=== PATIENT | male | born 1960 | race Caucasian/White ===

== ENCOUNTER 2020-06-10 23:22 | Inpatient (IN) | payer BC, OTHER, SELFPAY ==
[2020-06-10 23:56] LABS: #Basophils 0.1 thou/uL (0.0-0.2); #Eosinphils 0.1 thou/uL (0.0-0.7); #Lymphocytes 1.1 thou/uL (1.20-3.40); #Monocytes 0.3 thou/uL (0.11-0.59); #Neutrophils 8.4 thou/uL (1.40-6.50); %Basophils 0.7 % (0.0-1.0); %Eosinophils 1.3 % (0.0-10.0); %Lymphocytes 11.1 % (21.0-51.0); %Monocytes 3.3 % (0.0-10.0); %Neutrophils 83.6 % (42.0-75.0); Hemoglobin 16.9 g/dL (14.0-18.0); Mean Corpuscular HGB CONC 32.8 g/dL (32.0-36.0); Mean Corpuscular Hemoglobin 32.7 pg (27.0-31.0); Mean Corpuscular Volume 99.6 fL (78.0-98.0); Mean Platelet Volume 6.4 fL (7.4-10.4); Platelet Count 205 thou/uL (130-400); RBC Distribution Width 12.5 % (11.5-14.5); Red Blood Cell (RBC) Count 5.18 mill/uL (4.70-6.10); White Blood Cell (WBC) Count 10.1 thou/uL (4.8-10.8)
[2020-06-11 00:17] LABS: ALT (SGPT) 83 U/L (8-55); AST (SGOT) 95 U/L (5-34); Albumin 3.8 g/dL (3.4-4.8); Alkaline Phosphatase 92 U/L (40-110); Anion Gap 14 mmol/L (10-20); BUN (Urea Nitrogen) 17 mg/dL (8.4-25.7); Bilirubin, Total 0.5 mg/dL (0.2-1.2); Calc. Creatinine Clearance 0 mL/min (70-130); Calcium 8.7 mg/dL (7.8-10.44); Carbon Dioxide 19 mmol/L (23-31); Chloride 110 mmol/L (98-107); Globulin 2.4 g/dL (2.4-3.5); Glucose 131 mg/dL (80-115); Potassium 4.3 mmol/L (3.5-5.1); Protein, Total 6.2 g/dL (5.8-8.1); Sodium 139 mmol/L (136-145)
[2020-06-11 00:45] LABS: CK (CPK) 64 U/L (30-200); Lipase 61 U/L (8-78)
[2020-06-11 01:23] LABS: SARS-CoV-2 NAA Rapid Test Not Detected (NotDetected)
[2020-06-11] MEDS ORDERED: Furosemide 40 MG/4 ML VIAL ONE ×2 (02:23→05:51)
[2020-06-11 02:25] LABS: CKMB 2.8 ng/mL (0-6.6)
[2020-06-11] MEDS ORDERED: Nitroglycerin 0.4 MG TAB (25 Tab Bottle) SL PRN (03:08)
[2020-06-11] MEDS ORDERED: Dextrose 5% in Water 1,000 ML IV PRN (03:09)
[2020-06-11] MEDS ORDERED: HumaLOG 300 UNITS/3 ML VIAL SC PRN ×2 (03:09)
[2020-06-11] MEDS ORDERED: Dextrose 50% Abboject 50 ML SYRINGE SLOW IVP PRN (03:09)
[2020-06-11] MEDS ORDERED: Aspirin 325 MG TAB PO SCH (03:30)
[2020-06-11] MEDS ORDERED: Ondansetron ODT 4 MG TAB PO PRN (03:35)
[2020-06-11] MEDS ORDERED: Ondansetron PF 4 MG/2 ML Vial IVP PRN (03:35)
[2020-06-11] MEDS ORDERED: Calcium Carbonate 500 MG ChewTAB PO PRN (03:35)
[2020-06-11] MEDS ORDERED: Senokot S 8.6-50 MG TAB PO PRN (03:35)
[2020-06-11] MEDS ORDERED: Acetaminophen 325 MG TAB PO PRN (03:35)
[2020-06-11] MEDS ORDERED: Aspirin Chewable 81 MG TAB ONE (04:17)
[2020-06-11] MEDS ORDERED: Furosemide 40 MG/4 ML VIAL SLOW IVP SCH (06:00)
[2020-06-11 06:20] LABS: Cardiac Risk 4.1 (Less than 4.5)
[2020-06-11 06:24] LABS: Troponin I 0.148 ng/mL (< 0.028)
[2020-06-11] MEDS ORDERED: Carvedilol 3.125 MG TAB PO SCH (08:00)
[2020-06-11] MEDS ORDERED: Famotidine 20 MG TAB PO SCH (09:00)
[2020-06-11] MEDS ORDERED: Enoxaparin Sodium 40 MG/0.4 ML SYRINGE SC SCH (09:00)
[2020-06-11] MEDS ORDERED: Lisinopril 10 MG TAB PO SCH ×2 (09:00)
[2020-06-11] MEDS ORDERED: Aspirin Chewable 81 MG TAB PO SCH (09:00)
[2020-06-11 09:04] LABS: Troponin I 0.119 ng/mL (< 0.028)
[2020-06-11] MEDS ORDERED: Famotidine 20 MG TAB ONE (09:56)
[2020-06-11] MEDS ORDERED: Enoxaparin Sodium 40 MG/0.4 ML SYRINGE ONE (09:56)
[2020-06-11] MEDS ORDERED: Iopamidol-370 76% 500 ML 1 ML ONE (12:50)
[2020-06-11] MEDS ORDERED: Atorvastatin Calcium 40 MG TAB PO SCH (21:00)
[2020-06-12] MEDS ORDERED: Aspirin 81 mg Enteric Coated Tablet PO SCH (09:00)
== END 2020-06-11 15:03 | disposition left against medical advice (07) | DRG 292 ==
LOC: ERS 23:22 → ERHOLD 06-11 02:27
PROVIDERS: ADMIT Student in an Organized Health Care Education/Training Program; ATTEND Internal Medicine
DX: I11.0 Hypertensive heart disease with heart failure (principal); C18.9 Malignant neoplasm of colon, unspecified; I24.8 Other forms of acute ischemic heart disease; J98.11 Atelectasis; I50.9 Heart failure, unspecified; E11.9 Type 2 diabetes mellitus without complications; R77.8 Other specified abnormalities of plasma proteins; F12.10 Cannabis abuse, uncomplicated; E78.5 Hyperlipidemia, unspecified; I25.119 Atherosclerotic heart disease of native coronary artery with unspecified angina pectoris; Z88.1 Allergy status to other antibiotic agents; Z95.5 Presence of coronary angioplasty implant and graft; Z85.038 Personal history of other malignant neoplasm of large intestine; Z98.890 Other specified postprocedural states; Z90.49 Acquired absence of other specified parts of digestive tract; Z72.0 Tobacco use; Z53.29 Procedure and treatment not carried out because of patient's decision for other reasons; Z20.822 Contact with and (suspected) exposure to COVID-19
CPT/HCPCS: 0240U; 36415; 36416; 71045; 71275; 80053; 80061; 82550; 82553; 83690; 83735; 83880; 84443; 84484; 85025; 85379; 87635; 93005; 96374; J1650; J1940; Q9967; U0003; U0005

== ENCOUNTER 2022-03-08 05:30 | Inpatient (IN) | payer BC ==
[2022-03-08] MEDS ORDERED: Morphine 4 MG/ML VIAL ONE (05:50)
[2022-03-08] MEDS ORDERED: Furosemide 40 MG/4 ML VIAL ONE ×2 (05:51→14:57)
[2022-03-08 06:14] LABS: #Basophils 0.1 thou/uL (0.0-0.2); #Eosinphils 0.4 thou/uL (0.0-0.7); #Lymphocytes 1.1 thou/uL (1.20-3.40); #Monocytes 0.7 thou/uL (0.11-0.59); #Neutrophils 8.4 thou/uL (1.40-6.50); %Basophils 0.6 % (0.0-1.0); %Lymphocytes 10.6 % (21.0-51.0); %Monocytes 6.8 % (0.0-10.0); Hemoglobin 14.2 g/dL (14.0-18.0); Mean Corpuscular HGB CONC 32.4 g/dL (32.0-36.0); Mean Corpuscular Hemoglobin 32.5 pg (27.0-31.0); Mean Platelet Volume 6.2 fL (7.4-10.4); Platelet Count 277 10x3/uL (130-400); RBC Distribution Width 11.6 % (11.5-14.5); Red Blood Cell (RBC) Count 4.38 mill/uL (4.70-6.10); White Blood Cell (WBC) Count 10.8 10x3/uL (4.8-10.8)
[2022-03-08 06:34] LABS: ALT (SGPT) 14 U/L (8-55); AST (SGOT) 16 U/L (5-34); Albumin 3.6 g/dL (3.4-4.8); Alkaline Phosphatase 63 U/L (40-110); Anion Gap 12 mmol/L (10-20); BUN (Urea Nitrogen) 12 mg/dL (8.4-25.7); Bilirubin, Total 0.5 mg/dL (0.2-1.2); Calc. Creatinine Clearance 0 mL/min (70-130); Calcium 8.3 mg/dL (7.8-10.44); Carbon Dioxide 23 mmol/L (23-31); Chloride 109 mmol/L (98-107); Estimated GFR 98; Globulin 2.1 g/dL (2.4-3.5); Glucose 92 mg/dL (80-115); Lipase 25 U/L (8-78); Potassium 4.1 mmol/L (3.5-5.1); Protein, Total 5.7 g/dL (5.8-8.1); Sodium 140 mmol/L (136-145)
[2022-03-08 06:50] LABS: SARS-CoV-2 NAA Rapid Test Not Detected (NotDetected)
[2022-03-08 06:57] LABS: CKMB 3.6 ng/mL (0-6.6)
[2022-03-08] MEDS ORDERED: Ipratropium/Albuterol 3 ML NEB ONE ×2 (08:51→14:31)
[2022-03-08 11:03] LABS: Bilirubin Negative (Negative); Blood, Urine Negative (Negative); Clarity Clear (Clear); Glucose, Urine (Dipstick) Normal (Negative); Ketone, Urine Negative (Negative); Leukocyte Negative Leu/uL (Negative); Nitrite Negative (Negative); Protein, Urine (Dipstick) Negative (Neg-Trace); Specific Gravity, Urine 1.007 (1.002-1.036); Urobilinogen Normal mg/dL (Less than 2)
[2022-03-08] MEDS ORDERED: Ondansetron ODT 4 MG TAB PO PRN (11:17)
[2022-03-08] MEDS ORDERED: Dextrose 50% Abboject 50 ML SYRINGE SLOW IVP PRN (11:17)
[2022-03-08] MEDS ORDERED: Acetaminophen 500 MG TAB PO PRN (11:17)
[2022-03-08] MEDS ORDERED: HumaLOG 300 UNITS/3 ML VIAL SC PRN ×2 (11:17)
[2022-03-08] MEDS ORDERED: Dextrose 5% in Water 1,000 ML IV PRN (11:17)
[2022-03-08] MEDS ORDERED: Benzonatate 100 MG CAP PO PRN (11:17)
[2022-03-08] MEDS ORDERED: Ondansetron PF 4 MG/2 ML Vial IVP PRN (11:17)
[2022-03-08] MEDS ORDERED: Mometasone 200 MCG/Formoterol 5 MCG 120 PUFF INHALER INH SCH (11:45)
[2022-03-08 12:00] LABS: Cardiac Risk 3.9 (Less than 4.5)
[2022-03-08] MEDS: Ipratropium/Albuterol 3 ML NEB NEB SCH ×2 (14:35→19:51)
[2022-03-08] MEDS: Furosemide 40 MG/4 ML VIAL SLOW IVP SCH ×2 (15:14→21:59)
[2022-03-08 18:27] VITALS: BMI 33.7
[2022-03-08] MEDS: Mometasone 200 MCG/Formoterol 5 MCG 120 PUFF INHALER INH SCH (19:55)
[2022-03-08] MEDS ORDERED: Atorvastatin Calcium 40 MG TAB PO SCH (21:00)
[2022-03-08] MEDS: Famotidine 20 MG TAB PO SCH (21:58)
[2022-03-09 04:30] LABS: #Basophils 0.1 thou/uL (0.0-0.2); #Eosinphils 0.5 thou/uL (0.0-0.7); #Lymphocytes 1.1 thou/uL (1.20-3.40); #Monocytes 0.7 thou/uL (0.11-0.59); #Neutrophils 8.1 thou/uL (1.40-6.50); %Basophils 0.6 % (0.0-1.0); %Eosinophils 5.1 % (0.0-10.0); %Lymphocytes 10.6 % (21.0-51.0); %Monocytes 6.5 % (0.0-10.0); %Neutrophils 77.2 % (42.0-75.0); Hemoglobin 15.2 g/dL (14.0-18.0); Mean Corpuscular Hemoglobin 32.6 pg (27.0-31.0); Mean Corpuscular Volume 98.8 fl (78.0-98.0); Mean Platelet Volume 6.2 fL (7.4-10.4); Platelet Count 291 10x3/uL (130-400); RBC Distribution Width 11.6 % (11.5-14.5); Red Blood Cell (RBC) Count 4.68 mill/uL (4.70-6.10); White Blood Cell (WBC) Count 10.4 10x3/uL (4.8-10.8)
[2022-03-09 05:12] LABS: ALT (SGPT) 13 U/L (8-55); AST (SGOT) 15 U/L (5-34); Albumin 3.9 g/dL (3.4-4.8); Alkaline Phosphatase 70 U/L (40-110); Anion Gap 14 mmol/L (10-20); BUN (Urea Nitrogen) 14 mg/dL (8.4-25.7); Bilirubin, Total 0.9 mg/dL (0.2-1.2); Calc. Creatinine Clearance 115 mL/min (70-130); Calcium 9.1 mg/dL (7.8-10.44); Carbon Dioxide 24 mmol/L (23-31); Chloride 103 mmol/L (98-107); Estimated GFR 97; Globulin 2.8 g/dL (2.4-3.5); Glucose 112 mg/dL (80-115); Potassium 3.4 mmol/L (3.5-5.1); Protein, Total 6.7 g/dL (5.8-8.1); Sodium 138 mmol/L (136-145)
[2022-03-09] MEDS: Furosemide 40 MG/4 ML VIAL SLOW IVP SCH ×2 (06:41→14:20)
[2022-03-09] MEDS: Mometasone 200 MCG/Formoterol 5 MCG 120 PUFF INHALER INH SCH (07:26)
[2022-03-09] MEDS: Ipratropium/Albuterol 3 ML NEB NEB SCH ×3 (07:27→14:21)
[2022-03-09] MEDS ORDERED: Potassium Chloride 20 MEQ TAB PO SCH (07:45)
[2022-03-09] MEDS ORDERED: Aspirin 81 mg Enteric Coated Tablet PO SCH (09:00)
[2022-03-09] MEDS ORDERED: Lisinopril 2.5 MG TAB PO SCH (09:00)
[2022-03-09 09:28] LABS: Troponin I 0.049 ng/mL (< 0.028)
[2022-03-09] MEDS: Famotidine 20 MG TAB PO SCH (09:57)
[2022-03-09 11:57] VITALS: BP 88/58; TEMP 98.6
== END 2022-03-09 15:15 | disposition left against medical advice (07) | DRG 291 ==
LOC: ERS 05:30 → ERHOLD 07:35 → 2NO 18:02
PROVIDERS: ADMIT Family Medicine; ATTEND Internal Medicine
DX: I11.0 Hypertensive heart disease with heart failure (principal); I50.23 Acute on chronic systolic (congestive) heart failure; Z20.822 Contact with and (suspected) exposure to COVID-19; E11.9 Type 2 diabetes mellitus without complications; F17.210 Nicotine dependence, cigarettes, uncomplicated; F12.10 Cannabis abuse, uncomplicated; I25.10 Atherosclerotic heart disease of native coronary artery without angina pectoris; E78.5 Hyperlipidemia, unspecified; J44.9 Chronic obstructive pulmonary disease, unspecified; Z91.190 Patient's noncompliance with other medical treatment and regimen due to financial hardship; Z95.5 Presence of coronary angioplasty implant and graft; Z85.038 Personal history of other malignant neoplasm of large intestine; Z88.1 Allergy status to other antibiotic agents
CPT/HCPCS: 36415; 36416; 71045; 80053; 80061; 81003; 82553; 83605; 83690; 83735; 83880; 84443; 84484; 85025; 93005; 93306; 94640; 94664; 96374; 96375; 97139; J1940; J2270; J7620

== ENCOUNTER 2022-03-19 01:43 | Inpatient (IN) | payer BC ==
[2022-03-19] MEDS ORDERED: cefTRIAXone\\ROCEPHIN 1 GM VIAL ONE (02:20)
[2022-03-19 06:18] VITALS: BMI 31.7
[2022-03-19 06:31] LABS: SARS-CoV-2 NAA Rapid Test Not Detected (NotDetected)
[2022-03-19 07:46] LABS: Troponin I 0.084 ng/mL (< 0.028)
[2022-03-19] MEDS ORDERED: Ondansetron PF 4 MG/2 ML Vial IVP PRN (08:30)
[2022-03-19] MEDS ORDERED: Ondansetron ODT 4 MG TAB PO PRN (08:30)
[2022-03-19] MEDS ORDERED: [UNRECOGNIZED DRUG - OTHER] PO SCH (09:00)
[2022-03-19] MEDS ORDERED: POTASSIUM CHLORIDE 20 MEQ/15 ML PO SCH (09:00)
[2022-03-19] MEDS ORDERED: Lisinopril 2.5 MG TAB PO SCH (09:00)
[2022-03-19] MEDS ORDERED: Iopamidol-370 76% 500 ML 1 ML ONE (09:44)
[2022-03-19 09:58] LABS: Troponin I 0.084 ng/mL (< 0.028)
[2022-03-19] MEDS ORDERED: Azithromycin 500 MG in Sodium Chloride 0.9% 250 ML 250 ML IVPB SCH (10:00)
[2022-03-19] MEDS ORDERED: Furosemide 40 MG TAB ONE (11:14)
[2022-03-19] MEDS ORDERED: Aspirin Chewable 81 MG TAB ONE (11:14)
[2022-03-19] MEDS ORDERED: Nicotine 14 MG PATCH ONE (11:14)
[2022-03-19] MEDS: Aspirin 81 mg Enteric Coated Tablet PO SCH (11:31)
[2022-03-19] MEDS: Furosemide 40 MG TAB PO SCH (11:31)
[2022-03-19] MEDS: Nicotine 14 MG PATCH TD SCH (11:32)
[2022-03-19] MEDS ORDERED: Ondansetron PF 4 MG/2 ML Vial ONE (14:28)
[2022-03-19] MEDS: Ipratropium/Albuterol 3 ML NEB NEB PRN (17:38)
[2022-03-19] MEDS ORDERED: Digoxin 0.5 MG/2 ML AMP SLOW IVP SCH ×3 (18:00→21:00)
[2022-03-19] MEDS: Atorvastatin Calcium 40 MG TAB PO SCH (20:02)
[2022-03-20 02:39] LABS: #Eosinphils 0.1 thou/uL (0.0-0.7); #Lymphocytes 1.6 thou/uL (1.20-3.40); #Monocytes 1.1 thou/uL (0.11-0.59); #Neutrophils 11.5 thou/uL (1.40-6.50); %Basophils 0.2 % (0.0-1.0); %Eosinophils 0.8 % (0.0-10.0); %Monocytes 7.7 % (0.0-10.0); %Neutrophils 80.4 % (42.0-75.0); Hemoglobin 13.6 g/dL (14.0-18.0); Mean Corpuscular HGB CONC 32.3 g/dL (32.0-36.0); Mean Corpuscular Hemoglobin 32.1 pg (27.0-31.0); Mean Corpuscular Volume 99.3 fl (78.0-98.0); Mean Platelet Volume 6.6 fL (7.4-10.4); Platelet Count 356 10x3/uL (130-400); RBC Distribution Width 11.9 % (11.5-14.5); Red Blood Cell (RBC) Count 4.22 mill/uL (4.70-6.10); White Blood Cell (WBC) Count 14.4 10x3/uL (4.8-10.8)
[2022-03-20] MEDS: cefTRIAXone\\ROCEPHIN 1 GM in Sodium Chloride 0.9% 100 ML IVPB SCH (02:49)
[2022-03-20 03:00] LABS: ALT (SGPT) 20 U/L (8-55); AST (SGOT) 16 U/L (5-34); Albumin 3.6 g/dL (3.4-4.8); Alkaline Phosphatase 63 U/L (40-110); Anion Gap 15 mmol/L (10-20); BUN (Urea Nitrogen) 17 mg/dL (8.4-25.7); Bilirubin, Total 0.6 mg/dL (0.2-1.2); Calc. Creatinine Clearance 117 mL/min (70-130); Calcium 8.9 mg/dL (7.8-10.44); Carbon Dioxide 23 mmol/L (23-31); Chloride 101 mmol/L (98-107); Estimated GFR 97; Globulin 2.6 g/dL (2.4-3.5); Glucose 103 mg/dL (80-115); Potassium 3.9 mmol/L (3.5-5.1); Protein, Total 6.2 g/dL (5.8-8.1); Sodium 135 mmol/L (136-145)
[2022-03-20] MEDS: Acetaminophen 325 MG TAB PO PRN (04:45)
[2022-03-20] MEDS: Aspirin 81 mg Enteric Coated Tablet PO SCH (08:40)
[2022-03-20] MEDS: Nicotine 14 MG PATCH TD SCH (08:40)
[2022-03-20] MEDS: Digoxin 0.25 MG TAB PO SCH (08:40)
[2022-03-20] MEDS: Potassium Chloride 20 MEQ TAB PO SCH (08:40)
[2022-03-20] MEDS: Furosemide 40 MG TAB PO SCH (08:40)
[2022-03-20] MEDS ORDERED: Metoprolol Tartrate 25 MG TAB PO SCH (09:00)
[2022-03-20] MEDS: Diazepam 2 MG TAB PO PRN (12:36)
[2022-03-20 16:23] LABS: Hemoglobin 14.1 g/dL (14.0-18.0)
[2022-03-20 17:36] LABS: RBC Count-Automated (BF) Greater than 890000 /cu.mm; WBC/Nucleated-Auto (BF) 4353 /cu.mm
[2022-03-20 17:43] LABS: Pleural Fluid, Amylase 44 U/L (Not Available); Pleural Fluid, Glucose Less than 20 mg/dL; Pleural Fluid, LDH 2270 U/L (Not Available)
[2022-03-20 18:07] LABS: BF Color Red; Body Fluid Source Pleural Fluid; Clarity Cloudy/Turbid (Clear); Tube # EDTA
[2022-03-20 18:33] LABS: BF Segmented Neutrophils 20 %; Cell Count Non Hematic 17 %; Eosinophils 13 %; Lymphocytes 50 %
[2022-03-20] MEDS ORDERED: Preparation H Ointment 28 GM TUBE TOP PRN (19:53)
[2022-03-20] MEDS: Atorvastatin Calcium 40 MG TAB PO SCH (20:16)
[2022-03-21] MEDS: cefTRIAXone\\ROCEPHIN 1 GM in Sodium Chloride 0.9% 100 ML IVPB SCH (03:11)
[2022-03-21 05:11] LABS: #Eosinphils 0.1 thou/uL (0.0-0.7); #Lymphocytes 1.1 thou/uL (1.20-3.40); #Monocytes 1.1 thou/uL (0.11-0.59); #Neutrophils 12.7 thou/uL (1.40-6.50); %Basophils 0.2 % (0.0-1.0); %Eosinophils 0.9 % (0.0-10.0); %Lymphocytes 7.1 % (21.0-51.0); %Monocytes 7.3 % (0.0-10.0); %Neutrophils 84.6 % (42.0-75.0); Hemoglobin 13.6 g/dL (14.0-18.0); Platelet Count 364 10x3/uL (130-400); RBC Distribution Width 11.8 % (11.5-14.5); Red Blood Cell (RBC) Count 4.13 mill/uL (4.70-6.10)
[2022-03-21 05:28] LABS: ALT (SGPT) 26 U/L (8-55); AST (SGOT) 18 U/L (5-34); Albumin 3.1 g/dL (3.4-4.8); Alkaline Phosphatase 70 U/L (40-110); Anion Gap 14 mmol/L (10-20); BUN (Urea Nitrogen) 16 mg/dL (8.4-25.7); Bilirubin, Total 0.4 mg/dL (0.2-1.2); Calc. Creatinine Clearance 111 mL/min (70-130); Calcium 8.5 mg/dL (7.8-10.44); Carbon Dioxide 27 mmol/L (23-31); Chloride 102 mmol/L (98-107); Estimated GFR 97; Globulin 2.5 g/dL (2.4-3.5); Glucose 150 mg/dL (80-115); Protein, Total 5.6 g/dL (5.8-8.1); Sodium 139 mmol/L (136-145)
[2022-03-21] MEDS: Nicotine 14 MG PATCH TD SCH (08:11)
[2022-03-21] MEDS: Furosemide 40 MG TAB PO SCH (08:16)
[2022-03-21] MEDS: Digoxin 0.25 MG TAB PO SCH (08:16)
[2022-03-21] MEDS: Potassium Chloride 20 MEQ TAB PO SCH (08:16)
[2022-03-21] MEDS: Aspirin 81 mg Enteric Coated Tablet PO SCH (08:16)
[2022-03-21] MEDS ORDERED: Spironolactone 25 MG TAB PO SCH (10:00)
[2022-03-21] MEDS: Atorvastatin Calcium 40 MG TAB PO SCH (21:10)
[2022-03-21] MEDS: Ipratropium/Albuterol 3 ML NEB NEB PRN (22:43)
[2022-03-21] MEDS: Diazepam 2 MG TAB PO PRN (23:07)
[2022-03-22] MEDS: cefTRIAXone\\ROCEPHIN 1 GM in Sodium Chloride 0.9% 100 ML IVPB SCH (03:01)
[2022-03-22 04:57] LABS: #Eosinphils 0.3 thou/uL (0.0-0.7); #Lymphocytes 1.5 thou/uL (1.20-3.40); #Neutrophils 11.5 thou/uL (1.40-6.50); %Basophils 0.2 % (0.0-1.0); %Eosinophils 1.8 % (0.0-10.0); %Lymphocytes 10.3 % (21.0-51.0); %Monocytes 6.7 % (0.0-10.0); Hemoglobin 13.4 g/dL (14.0-18.0); Mean Corpuscular HGB CONC 32.8 g/dL (32.0-36.0); Mean Corpuscular Hemoglobin 32.2 pg (27.0-31.0); Mean Corpuscular Volume 98.3 fl (78.0-98.0); Mean Platelet Volume 6.2 fL (7.4-10.4); Platelet Count 335 10x3/uL (130-400); Red Blood Cell (RBC) Count 4.15 mill/uL (4.70-6.10); White Blood Cell (WBC) Count 14.2 10x3/uL (4.8-10.8)
[2022-03-22 05:27] LABS: ALT (SGPT) 25 U/L (8-55); AST (SGOT) 20 U/L (5-34); Alkaline Phosphatase 59 U/L (40-110); Anion Gap 13 mmol/L (10-20); BUN (Urea Nitrogen) 15 mg/dL (8.4-25.7); Bilirubin, Total 0.4 mg/dL (0.2-1.2); Calc. Creatinine Clearance 126 mL/min (70-130); Calcium 8.3 mg/dL (7.8-10.44); Carbon Dioxide 25 mmol/L (23-31); Chloride 104 mmol/L (98-107); Estimated GFR 100; Globulin 2.4 g/dL (2.4-3.5); Glucose 105 mg/dL (80-115); Potassium 4.2 mmol/L (3.5-5.1); Protein, Total 5.4 g/dL (5.8-8.1); Sodium 138 mmol/L (136-145)
[2022-03-22] MEDS: Aspirin 81 mg Enteric Coated Tablet PO SCH (08:31)
[2022-03-22] MEDS: Furosemide 40 MG TAB PO SCH (08:31)
[2022-03-22] MEDS: Nicotine 14 MG PATCH TD SCH (08:32)
[2022-03-22] MEDS: Spironolactone 25 MG TAB PO SCH (08:32)
[2022-03-22] MEDS: Potassium Chloride 20 MEQ TAB PO SCH (08:32)
[2022-03-22] MEDS: Digoxin 0.25 MG TAB PO SCH (08:32)
[2022-03-22] MEDS: Ipratropium/Albuterol 3 ML NEB NEB PRN (12:00)
[2022-03-22 13:42] LABS: ANA Symphony (Qualitative) Negative (Negative); ANA Symphony (Quantitative) 0.3 Ratio (< 0.7 Negative); dsDNA IgG Antibody 0.9 IU/mL (<10 Negative)
[2022-03-22] MEDS ORDERED: Albuterol 200 PUFF (6.7GM INHALER) INH PRN (13:43)
[2022-03-22] MEDS ORDERED: fentaNYL PF 100 MCG/2 ML SYRINGE ONE ×2 (15:07→16:56)
[2022-03-22] MEDS ORDERED: Albumin 5% 250 ML ONE (15:08)
[2022-03-22] MEDS ORDERED: Bupivacaine HCl 0.5%/Epinephrine 1:200,000/PF 30 ml Vial ONE (16:08)
[2022-03-22] MEDS ORDERED: Dexamethasone 4 mg/ml Vial ONE (16:08)
[2022-03-22] MEDS ORDERED: HYDROmorphone 0.5 MG/0.5 ML SYRINGE ONE (16:57)
[2022-03-22] MEDS ORDERED: Lidocaine 1% PF 5 ML VIAL ONE (17:26)
[2022-03-22] MEDS ORDERED: Dexamethasone 20 MG/5 ML VIAL ONE (17:26)
[2022-03-22] MEDS ORDERED: PHENYLEPHRINE-NS 100 MCG/ML 10 ML SYRINGE ONE (17:26)
[2022-03-22] MEDS ORDERED: Rocuronium Bromide 10 MG/ML (10ML VIAL) ONE (17:26)
[2022-03-22] MEDS ORDERED: Ondansetron PF 4 MG/2 ML Vial ONE (17:26)
[2022-03-22] MEDS ORDERED: SUGAMMADEX SODIUM 200 MG/2 ML VIAL ONE (17:52)
[2022-03-22] MEDS ORDERED: Fentanyl 100 MCG/2 ML VIAL SLOW IVP PRN ×2 (18:29)
[2022-03-22] MEDS ORDERED: Ondansetron PF 4 MG/2 ML Vial IVP PRN (18:29)
[2022-03-22] MEDS ORDERED: Ipratropium/Albuterol 3 ML NEB NEB PRN (18:29)
[2022-03-22] MEDS ORDERED: Fentanyl 100 MCG/2 ML VIAL ONE (18:50)
[2022-03-22] MEDS: Atorvastatin Calcium 40 MG TAB PO SCH (20:34)
[2022-03-22] MEDS: Sacubitril 49 MG/Valsartan 51 MG TABLET PO SCH (22:54)
[2022-03-22] MEDS: traMADol HCl 50 MG TAB PO PRN (22:56)
[2022-03-23] MEDS: cefTRIAXone\\ROCEPHIN 1 GM in Sodium Chloride 0.9% 100 ML IVPB SCH (03:14)
[2022-03-23] MEDS: traMADol HCl 50 MG TAB PO PRN ×3 (05:01→23:06)
[2022-03-23 05:37] LABS: Band 4 % (5-11); Hemoglobin 13.4 g/dL (14.0-18.0); Lymphocytes 2 % (21-51); MDiff Complete? YES; Mean Corpuscular HGB CONC 34.1 g/dL (32.0-36.0); Mean Corpuscular Hemoglobin 33.7 pg (27.0-31.0); Mean Corpuscular Volume 98.8 fl (78.0-98.0); Monocytes 1 % (0-10); Neutrophil 93 % (42-75); Platelet Count 350 10x3/uL (130-400); Platelet Morphology Comment Appears Adequate; Polychromasia SLIGHT = 2-3 cells (100X) (0-2/hpf); Red Blood Cell (RBC) Count 3.97 mill/uL (4.70-6.10); White Blood Cell (WBC) Count 18.1 10x3/uL (4.8-10.8)
[2022-03-23 05:45] LABS: ALT (SGPT) 26 U/L (8-55); AST (SGOT) 28 U/L (5-34); Albumin 2.7 g/dL (3.4-4.8); Alkaline Phosphatase 59 U/L (40-110); Anion Gap 15 mmol/L (10-20); BUN (Urea Nitrogen) 20 mg/dL (8.4-25.7); Bilirubin, Total 0.5 mg/dL (0.2-1.2); Calc. Creatinine Clearance 99 mL/min (70-130); Calcium 8.3 mg/dL (7.8-10.44); Carbon Dioxide 20 mmol/L (23-31); Chloride 103 mmol/L (98-107); Estimated GFR 85; Globulin 2.7 g/dL (2.4-3.5); Glucose 250 mg/dL (80-115); Potassium 5.2 mmol/L (3.5-5.1); Protein, Total 5.4 g/dL (5.8-8.1); Sodium 133 mmol/L (136-145)
[2022-03-23] MEDS: Sacubitril 49 MG/Valsartan 51 MG TABLET PO SCH ×2 (08:32→19:55)
[2022-03-23] MEDS: Digoxin 0.25 MG TAB PO SCH (08:32)
[2022-03-23] MEDS: Aspirin 81 mg Enteric Coated Tablet PO SCH (08:33)
[2022-03-23] MEDS: Furosemide 40 MG TAB PO SCH (08:33)
[2022-03-23] MEDS: Nicotine 14 MG PATCH TD SCH (08:34)
[2022-03-23] MEDS: Potassium Chloride 20 MEQ TAB PO SCH (11:31)
[2022-03-23] MEDS: Spironolactone 25 MG TAB PO SCH (12:16)
[2022-03-23] MEDS: Atorvastatin Calcium 40 MG TAB PO SCH (19:55)
[2022-03-24] MEDS: cefTRIAXone\\ROCEPHIN 1 GM in Sodium Chloride 0.9% 100 ML IVPB SCH (02:35)
[2022-03-24 05:19] LABS: #Eosinphils 0.2 thou/uL (0.0-0.7); #Lymphocytes 1.5 thou/uL (1.20-3.40); #Monocytes 0.9 thou/uL (0.11-0.59); #Neutrophils 15.5 thou/uL (1.40-6.50); %Basophils 0.1 % (0.0-1.0); %Eosinophils 1.3 % (0.0-10.0); %Monocytes 4.8 % (0.0-10.0); %Neutrophils 85.9 % (42.0-75.0); Hemoglobin 12.3 g/dL (14.0-18.0); Mean Corpuscular HGB CONC 32.6 g/dL (32.0-36.0); Mean Corpuscular Volume 98.1 fl (78.0-98.0); Platelet Count 321 10x3/uL (130-400); RBC Distribution Width 12.1 % (11.5-14.5); Red Blood Cell (RBC) Count 3.86 mill/uL (4.70-6.10)
[2022-03-24 05:46] LABS: ALT (SGPT) 32 U/L (8-55); AST (SGOT) 30 U/L (5-34); Albumin 2.7 g/dL (3.4-4.8); Alkaline Phosphatase 57 U/L (40-110); Anion Gap 13 mmol/L (10-20); BUN (Urea Nitrogen) 17 mg/dL (8.4-25.7); Bilirubin, Total 0.4 mg/dL (0.2-1.2); Calc. Creatinine Clearance 120 mL/min (70-130); Calcium 8.4 mg/dL (7.8-10.44); Carbon Dioxide 23 mmol/L (23-31); Chloride 104 mmol/L (98-107); Estimated GFR 99; Globulin 2.6 g/dL (2.4-3.5); Glucose 103 mg/dL (80-115); Potassium 4.8 mmol/L (3.5-5.1); Protein, Total 5.3 g/dL (5.8-8.1); Sodium 135 mmol/L (136-145)
[2022-03-24] MEDS: traMADol HCl 50 MG TAB PO PRN ×2 (06:04→20:36)
[2022-03-24] MEDS: Aspirin 81 mg Enteric Coated Tablet PO SCH (09:04)
[2022-03-24] MEDS: Digoxin 0.25 MG TAB PO SCH (09:05)
[2022-03-24] MEDS: Sacubitril 49 MG/Valsartan 51 MG TABLET PO SCH ×2 (09:05→20:35)
[2022-03-24] MEDS: Spironolactone 25 MG TAB PO SCH (09:05)
[2022-03-24] MEDS: Furosemide 40 MG TAB PO SCH (09:05)
[2022-03-24] MEDS: Nicotine 14 MG PATCH TD SCH (09:06)
[2022-03-24] MEDS ORDERED: Iopamidol-370 76% 500 ML 1 ML ONE (09:54)
[2022-03-24 13:17] LABS: Fungus Stain Final report (.)
[2022-03-24] MEDS: Atorvastatin Calcium 40 MG TAB PO SCH (20:36)
[2022-03-25] MEDS: cefTRIAXone\\ROCEPHIN 1 GM in Sodium Chloride 0.9% 100 ML IVPB SCH (02:26)
[2022-03-25] MEDS: traMADol HCl 50 MG TAB PO PRN (08:27)
[2022-03-25] MEDS: Spironolactone 25 MG TAB PO SCH (08:27)
[2022-03-25] MEDS: Aspirin 81 mg Enteric Coated Tablet PO SCH (09:35)
[2022-03-25] MEDS: Furosemide 40 MG TAB PO SCH (09:36)
[2022-03-25] MEDS: Digoxin 0.25 MG TAB PO SCH (09:36)
[2022-03-25] MEDS: Nicotine 14 MG PATCH TD SCH (09:36)
[2022-03-25] MEDS: Sacubitril 49 MG/Valsartan 51 MG TABLET PO SCH (09:36)
[2022-03-25 11:56] VITALS: BP 97/54; TEMP 97.7
[2022-03-25] MEDS: Acetaminophen 325 MG TAB PO PRN (13:28)
== END 2022-03-25 16:50 | disposition home or self-care (01) | DRG 166 ==
LOC: ERS 01:43 → ERHOLD 05:49 → 2SW 16:14
PROVIDERS: ADMIT Student in an Organized Health Care Education/Training Program; ATTEND Hospitalist
PROC: 0W9B3ZZ Drainage of Left Pleural Cavity, Percutaneous Approach (ICD-10-PCS; principal; 2022-03-20)
PROC: 0BBP4ZX Excision of Left Pleura, Percutaneous Endoscopic Approach, Diagnostic (ICD-10-PCS; 2022-03-22)
PROC: 0W9B40Z Drainage of Left Pleural Cavity with Drainage Device, Percutaneous Endoscopic Approach (ICD-10-PCS; 2022-03-22)
PROC: 3E033XZ Introduction of Vasopressor into Peripheral Vein, Percutaneous Approach (ICD-10-PCS; 2022-03-22)
PROC: 0WCB4ZZ Extirpation of Matter from Left Pleural Cavity, Percutaneous Endoscopic Approach (ICD-10-PCS; 2022-03-22)
DX: C38.4 Malignant neoplasm of pleura (principal); I21.A1 Myocardial infarction type 2; J96.01 Acute respiratory failure with hypoxia; I50.22 Chronic systolic (congestive) heart failure; I47.20 Ventricular tachycardia, unspecified; J94.2 Hemothorax; C18.7 Malignant neoplasm of sigmoid colon; J91.0 Malignant pleural effusion; E11.9 Type 2 diabetes mellitus without complications; I25.5 Ischemic cardiomyopathy; F17.210 Nicotine dependence, cigarettes, uncomplicated; J44.9 Chronic obstructive pulmonary disease, unspecified; I25.10 Atherosclerotic heart disease of native coronary artery without angina pectoris; I11.0 Hypertensive heart disease with heart failure; E78.5 Hyperlipidemia, unspecified; Z95.5 Presence of coronary angioplasty implant and graft; Z88.1 Allergy status to other antibiotic agents; Z79.82 Long term (current) use of aspirin; Z79.899 Other long term (current) drug therapy; Z98.890 Other specified postprocedural states; Z82.49 Family history of ischemic heart disease and other diseases of the circulatory system; Z90.49 Acquired absence of other specified parts of digestive tract; Z20.822 Contact with and (suspected) exposure to COVID-19; Z71.6 Tobacco abuse counseling; I25.119 Atherosclerotic heart disease of native coronary artery with unspecified angina pectoris
CPT/HCPCS: 36415; 71045; 71260; 71275; 74177; 80053; 82150; 82378; 82945; 83605; 83615; 84157; 84484; 85025; 85060; 86038; 86225; 87040; 87070; 87077; 87116; 87149; 87205; 87206; 88112; 88305; 88341; 88342; 89051; 93005; 94640; 96365; C1729; J0696; J1100; J1160; J1170; J1956; J2405; J3010; J3490; J7620; P9045; Q0162; Q9967; U0002

== ENCOUNTER 2022-04-07 14:27 | Outpatient (CLI) | payer BC | END 2022-04-07 14:28 | disposition home or self-care (01) | LOC: SCSMRI 14:27 | PROVIDERS: ATTEND Internal Medicine | DX: C34.91 Malignant neoplasm of unspecified part of right bronchus or lung (principal) | CPT/HCPCS: 70553 ==

== ENCOUNTER → 2022-04-07 | Outpatient (CLI) | payer BC | LOC: PET 10:15 | PROVIDERS: ATTEND Internal Medicine | DX: C34.91 Malignant neoplasm of unspecified part of right bronchus or lung (principal); R91.8 Other nonspecific abnormal finding of lung field | CPT/HCPCS: 78815; A9552 ==

== ENCOUNTER 2022-04-13 13:12 | Outpatient (CLI) | payer BC | END 2022-04-13 13:13 | disposition home or self-care (01) | LOC: BICRAD 13:12 | PROVIDERS: ATTEND Thoracic Surgery (Cardiothoracic Vascular Surgery) | DX: J91.0 Malignant pleural effusion (principal) | CPT/HCPCS: 71046 ==

== ENCOUNTER 2022-04-23 09:16 | Day surgery (SDC) | payer BC ==
[2022-04-22 09:52] VITALS: BMI 32.3
[2022-04-23 10:17] LABS: #Lymphocytes 0.9 thou/uL (1.20-3.40); #Monocytes 0.6 thou/uL (0.11-0.59); #Neutrophils 10.2 thou/uL (1.40-6.50); %Basophils 0.4 % (0.0-1.0); %Eosinophils 0.3 % (0.0-10.0); %Lymphocytes 7.4 % (21.0-51.0); %Monocytes 5.4 % (0.0-10.0); %Neutrophils 86.6 % (42.0-75.0); Hemoglobin 9.4 g/dL (14.0-18.0); Mean Corpuscular HGB CONC 31.4 g/dL (32.0-36.0); Mean Corpuscular Hemoglobin 28.9 pg (27.0-31.0); Platelet Count 417 10x3/uL (130-400); RBC Distribution Width 15.2 % (11.5-14.5); Red Blood Cell (RBC) Count 3.26 mill/uL (4.70-6.10); White Blood Cell (WBC) Count 11.8 10x3/uL (4.8-10.8)
[2022-04-23] MEDS ORDERED: Bupivacaine/Epinephrine 0.25% 30 ML VIAL ONE (10:42)
[2022-04-23] MEDS ORDERED: Lidocaine 2% PF 5 ML VIAL ONE (10:42)
[2022-04-23 10:49] LABS: Anion Gap 13 mmol/L (10-20); BUN (Urea Nitrogen) 12 mg/dL (8.4-25.7); Calc. Creatinine Clearance 120 mL/min (70-130); Calcium 9.1 mg/dL (7.8-10.44); Carbon Dioxide 23 mmol/L (23-31); Chloride 106 mmol/L (98-107); Estimated GFR 99; Glucose 103 mg/dL (80-115); Potassium 4.2 mmol/L (3.5-5.1); Sodium 138 mmol/L (136-145)
[2022-04-23] MEDS ORDERED: Fentanyl 100 MCG/2 ML VIAL ONE (10:58)
[2022-04-23] MEDS ORDERED: Ondansetron PF 4 MG/2 ML Vial ONE (10:59)
[2022-04-23] MEDS ORDERED: Oxymetazoline HCl 0.05% (30 ML BOT) ONE (10:59)
[2022-04-23] MEDS ORDERED: Famotidine/PF 20 mg/2ml Vial ONE (10:59)
[2022-04-23] MEDS ORDERED: CEFAZOLIN 2 GM VIAL ONE (11:33)
[2022-04-23] MEDS ORDERED: Sodium Chloride 0.9% 100 ML ONE (11:33)
[2022-04-23] MEDS ORDERED: Midazolam HCl 2 mg/2 ml Vial ONE (11:46)
[2022-04-23] MEDS ORDERED: Ketamine 50 MG/ML (10ML VIAL) ONE (11:46)
[2022-04-23] MEDS ORDERED: PROPOFOL 200 MG/20 ML VIAL ONE (11:57)
[2022-04-23] MEDS ORDERED: HYDROcodone/Acetaminophen 5/325 mg Tablet ONE (13:54)
== END 2022-04-23 14:24 | disposition home or self-care (01) ==
LOC: SDC 09:16
PROVIDERS: ATTEND Surgery
PROC: 02HV33Z Insertion of Infusion Device into Superior Vena Cava, Percutaneous Approach (ICD-10-PCS; principal; 2022-04-23)
PROC: 0JH60WZ Insertion of Totally Implantable Vascular Access Device into Chest Subcutaneous Tissue and Fascia, Open Approach (ICD-10-PCS; principal; 2022-04-23)
DX: C34.90 Malignant neoplasm of unspecified part of unspecified bronchus or lung (principal); J91.0 Malignant pleural effusion; I10 Essential (primary) hypertension; Z79.82 Long term (current) use of aspirin; Z79.899 Other long term (current) drug therapy; Z88.1 Allergy status to other antibiotic agents; Z95.5 Presence of coronary angioplasty implant and graft; Z90.49 Acquired absence of other specified parts of digestive tract
CPT/HCPCS: 71045; 80048; 85025; C1788; J1642; J2001; J2250; J2405; J2704; J3010; J3490; S0028

== ENCOUNTER 2022-05-04 13:46 | Day surgery (SDC) | payer BC ==
[2022-05-04] MEDS ORDERED: Acetaminophen 500 MG TAB ONE (15:14)
[2022-05-04] MEDS ORDERED: Acetaminophen 500 MG TAB PO SCH (15:15)
[2022-05-04] MEDS ORDERED: diphenhydrAMINE 25 MG CAP PO SCH (15:15)
[2022-05-04 17:54] VITALS: BP 128/60; TEMP 97.6
== END 2022-05-04 17:45 | disposition home or self-care (01) ==
LOC: ONC/OP 13:46
PROVIDERS: ATTEND Internal Medicine
PROC: 30233N1 Transfusion of Nonautologous Red Blood Cells into Peripheral Vein, Percutaneous Approach (ICD-10-PCS; principal; 2022-05-04)
DX: D64.9 Anemia, unspecified (principal); D69.6 Thrombocytopenia, unspecified; Z88.1 Allergy status to other antibiotic agents
CPT/HCPCS: 36430; 86850; 86900; 86901; P9016

== ENCOUNTER 2022-05-10 07:56 | Emergency (ER) | payer BC ==
[2022-05-10] MEDS ORDERED: Morphine 2 MG/ML VIAL ONE ×2 (08:25→10:58)
[2022-05-10 09:19] LABS: #Eosinphils 0.1 thou/uL (0.0-0.7); #Lymphocytes 0.6 thou/uL (1.20-3.40); #Monocytes 0.1 thou/uL (0.11-0.59); #Neutrophils 4.6 thou/uL (1.40-6.50); %Basophils 0.5 % (0.0-1.0); %Eosinophils 1.4 % (0.0-10.0); %Lymphocytes 11.4 % (21.0-51.0); %Neutrophils 85.8 % (42.0-75.0); Hemoglobin 8.5 g/dL (14.0-18.0); Mean Corpuscular HGB CONC 30.5 g/dL (32.0-36.0); Mean Corpuscular Hemoglobin 25.9 pg (27.0-31.0); Mean Corpuscular Volume 84.7 fl (78.0-98.0); Mean Platelet Volume 6.2 fL (7.4-10.4); Platelet Count 348 10x3/uL (130-400); RBC Distribution Width 17.7 % (11.5-14.5); Red Blood Cell (RBC) Count 3.27 mill/uL (4.70-6.10); White Blood Cell (WBC) Count 5.3 10x3/uL (4.8-10.8)
[2022-05-10 09:37] LABS: ALT (SGPT) 21 U/L (8-55); AST (SGOT) 27 U/L (5-34); Albumin 3.2 g/dL (3.4-4.8); Alkaline Phosphatase 62 U/L (40-110); Anion Gap 14 mmol/L (10-20); BUN (Urea Nitrogen) 30 mg/dL (8.4-25.7); Bilirubin, Total 0.7 mg/dL (0.2-1.2); CK (CPK) 44 U/L (30-200); Calc. Creatinine Clearance 0 mL/min (70-130); Calcium 8.3 mg/dL (7.8-10.44); Carbon Dioxide 21 mmol/L (23-31); Chloride 103 mmol/L (98-107); Estimated GFR 100; Globulin 2.2 g/dL (2.4-3.5); Glucose 93 mg/dL (80-115); Lipase 39 U/L (8-78); Potassium 4.4 mmol/L (3.5-5.1); Protein, Total 5.4 g/dL (5.8-8.1); Sodium 134 mmol/L (136-145)
[2022-05-10 12:32] LABS: Lactic Acid 1.8 mmol/L (0.5-2.2)
== END 2022-05-10 12:40 | disposition home or self-care (01) ==
LOC: ERS 07:56
DX: J90 Pleural effusion, not elsewhere classified (principal); R07.9 Chest pain, unspecified; E11.9 Type 2 diabetes mellitus without complications; I11.0 Hypertensive heart disease with heart failure; I50.9 Heart failure, unspecified; E78.5 Hyperlipidemia, unspecified; F17.210 Nicotine dependence, cigarettes, uncomplicated
CPT/HCPCS: 36415; 71045; 80053; 82550; 83605; 83690; 84484; 85025; 87040; 93005; 96374; 96376; J2272

== ENCOUNTER 2022-05-24 10:04 | Outpatient (CLI) | payer BC | END 2022-05-24 10:05 | disposition home or self-care (01) | LOC: BICCT 10:04 | PROVIDERS: ATTEND Thoracic Surgery (Cardiothoracic Vascular Surgery) | DX: J91.0 Malignant pleural effusion (principal); R59.1 Generalized enlarged lymph nodes; C78.7 Secondary malignant neoplasm of liver and intrahepatic bile duct; K43.9 Ventral hernia without obstruction or gangrene; M79.89 Other specified soft tissue disorders; R18.8 Other ascites | CPT/HCPCS: 71260 ==

== ENCOUNTER 2022-05-26 09:11 | Day surgery (SDC) | payer BC ==
[~2022-05-26 09:11] MED LIST: Acetaminophen 500 MG TAB PO SCH; diphenhydrAMINE 25 MG CAP PO SCH
[2022-05-26] MEDS ORDERED: Acetaminophen 500 MG TAB ONE (10:25)
[2022-05-26 16:39] VITALS: BP 124/61; TEMP 97.8
== END 2022-05-26 16:36 | disposition home or self-care (01) ==
LOC: ONC/OP 09:11
PROVIDERS: ATTEND Internal Medicine
PROC: 30233N1 Transfusion of Nonautologous Red Blood Cells into Peripheral Vein, Percutaneous Approach (ICD-10-PCS; principal; 2022-05-26)
DX: D64.9 Anemia, unspecified (principal); D69.6 Thrombocytopenia, unspecified; Z88.1 Allergy status to other antibiotic agents
CPT/HCPCS: 36430; 86850; 86900; 86901; J1642; P9016

== ENCOUNTER 2022-06-06 16:57 | Inpatient (IN) | payer OTHER ==
[2022-06-06] MEDS ORDERED: Haloperidol Lactate 5 MG/ML VIAL SLOW IVP PRN (17:30)
[2022-06-06] MEDS ORDERED: Promethazine HCl 25 MG SUPP PR PRN (17:30)
[2022-06-06] MEDS ORDERED: Ondansetron PF 4 MG/2 ML Vial IVP PRN (17:30)
[2022-06-06] MEDS ORDERED: Lorazepam 2 MG/ML VIAL SLOW IVP PRN (17:30)
[2022-06-06] MEDS ORDERED: Acetaminophen 650 MG Suppository PR PRN (17:30)
[2022-06-06] MEDS ORDERED: Glycopyrrolate 0.4 MG/ 2 ML VIAL SLOW IVP PRN ×2 (17:31→23:28)
[2022-06-06] MEDS ORDERED: Bisacodyl 10 MG SUPP PR PRN (17:33)
[2022-06-06] MEDS: Morphine 4 MG/ML VIAL SLOW IVP PRN ×2 (18:00→19:58)
[2022-06-06] MEDS ORDERED: Famotidine/PF 20 mg/2ml Vial SLOW IVP SCH (21:00)
[2022-06-06 21:04] VITALS: BP 108/66; TEMP 97.4
[2022-06-06] MEDS ORDERED: Glycopyrrolate 0.2 MG/ML 5 ML SYRINGE SLOW IVP PRN (23:20)
[2022-06-06] MEDS ORDERED: GLYCOPYRROLATE/PF 0.2 MG/ML VIAL SLOW IVP PRN (23:30)
[2022-06-07] MEDS: Morphine 4 MG/ML VIAL SLOW IVP PRN (04:45)
[2022-06-07] MEDS ORDERED: Furosemide 40 MG/4 ML VIAL SLOW IVP SCH (09:00)
== END 2022-06-07 10:05 | disposition expired | DRG 951 ==
LOC: 2NO 16:57
PROVIDERS: ADMIT Student in an Organized Health Care Education/Training Program; ATTEND Hospitalist
DX: Z51.5 Encounter for palliative care (principal); C34.90 Malignant neoplasm of unspecified part of unspecified bronchus or lung; C79.9 Secondary malignant neoplasm of unspecified site; I50.9 Heart failure, unspecified; K59.00 Constipation, unspecified; Z88.1 Allergy status to other antibiotic agents; F17.210 Nicotine dependence, cigarettes, uncomplicated; I95.9 Hypotension, unspecified
CPT/HCPCS: J2270; S0028